=== PATIENT | female | born 1975 | race Caucasian/White ===

== ENCOUNTER → 2017-02-07 | Outpatient (CLI) | payer MEDICARE, MEDICAID ==
[~2017-02-07] MED LIST: ABILIFY 10MG TA10 MG PO; ADIPEX-P37.5 MG PO; AMBIEN 5MG TABLE5 MG PO; AMBIEN5 MG PO; AMOXICILLIN 50500 MG PO; ANTI DEPRESSANT; BELSOMRA20 MG PO; BP MED; BRINTELLIX20; BRINTELLIX20 PO; CALCIUM CITRAT200 MG PO; CEFTIN250 MG PO; CELEBREX 1100 MG/CAP PO; CEPHALEXIN500 M1; CHOLESTEROL MED; CLEOCIN HCL300 MG PO; COZAAR100 MG PO; DESYREL 50MG50 MG PO; DITROPAN XL10 MG PO; DOXYCYCLINE 10100 MG PO; FERROUS SU325 MG/TAB PO; FLUOXETINE PO; FOLIC ACID; INVANZ INJ1 G/VIAL IV; IRON FERROUS S325 MG PO; IRON325 MG; IRON65 MG PO; KLONOPIN 1MG1 MG PO; LASIX 20MG TABL20 MG PO; LEVAQUIN 5500 MG/TA1 PO; LEVAQUIN 5500 MG/TAB PO; LEVAQUIN 750MG750 M1 PO; LORTAB 5/500 501 TAB PO; LOVENOX 3030 MG/0.3 SQ; MVI; NO HOME MEDICATIONS; NORCO 325 MG-51 TAB PO; NORCO 325 MG-7.1 TAB PO; NYSTATIN POWDER30 GM TOP; OXAYDO7.5 MG PO; PERCOCET 325 MG1 TA2 PO; PERCOCET 5/321 UDTAB PO; PRINZIDE 12.5 M1 TA1 PO; PROAIR HFA0.09 MG/AC IH; PROZAC 20MG20 MG PO; SINGULAIR 110 MG/TAB PO; TYLENOL 500MG500 MG PO; VESICARE10 MG PO; VIIBRYD40 MG PO; VIT B12; VITAMIN C500 MG PO; XANAX 1MG1 MG PO; ZOCOR 10MG10 MG PO; ZOCOR 20MG20 MG PO; ZOLOFT 100MG100 MG PO
== END ==
LOC: COL.VAS 12:59
DX: R60.0 Localized edema (principal)

== ENCOUNTER 2017-06-14 22:25 | Emergency (ER) | payer MEDICARE ==
[~2017-06-14] VITALS: Ht 167.6 cm; Wt 254.5 kg
[2017-06-14 22:30] VITALS: TEMP 97.6
[2017-06-14 23:27] LABS: COLLECTION METHOD CLEAN CATCH
[2017-06-14 23:33] LABS: MUCOUS Present /lpf; PH 5 (5-8); URINE APPEARANCE Cloudy; URINE BACTERIA Rare /hpf; URINE BILIRUBIN Negative (NEGATIVE); URINE BLOOD 3+ (NEGATIVE); URINE COLOR Yellow; URINE GLUCOSE Negative (NEGATIVE); URINE KETONE Negative (NEGATIVE); URINE LEUKOCYTE ESTERASE 3+ (NEGATIVE); URINE PROTEIN(semi-quant) Negative (NEGATIVE); URINE RBC 20-50 /hpf; URINE UROBILINOGEN Negative (NEGATIVE); URINE WBC 20-50 /hpf
[2017-06-14 23:35] LABS: BASO # 0.1 (0.0-0.2); BASO % 0.8 % (0.0-2.0); EOS # 0.1 (0.0-0.7); GRAN # 6.2 (1.4-6.5); GRAN % 75.1 % (42.2-75.2); HEMATOCRIT 39.7 % (37.0-47.0); HEMOGLOBIN 12.9 g/dl (12.5-16.0); LYMPH # 1.4 (1.2-3.4); LYMPH % 16.7 % (20.0-51.0); MEAN CELL VOLUME 91 fl (80.0-100.0); MEAN CORPUSCULAR HEMOGLOBIN 30 pg (27.0-31.0); MEAN CORPUSCULAR HGB CONC 33 g/dl (33.0-37.0); MEAN PLATELET VOLUME 11.1 fl (7.4-10.4); MONO # 0.5 (0.1-0.6); MONO % 6.2 % (1.7-9.3); PLATELET COUNT 256 K/mm3 (130-400); RED BLOOD COUNT 4.35 M/mm3 (4.10-5.30); WHITE BLOOD COUNT 8.3 K/mm3 (4.8-10.8)
[2017-06-14] MEDS ORDERED: ABILIFY 15MG TA15 MG PO (23:44)
[2017-06-14] MEDS ORDERED: CEPHALEXIN250 M1 PO (23:45)
[2017-06-14] MEDS ORDERED: VESICARE 5MG5 MG PO (23:45)
[2017-06-14 23:48] LABS: ADJUSTED CALCIUM 9.2 mg/dL (8.4-10.2); ALANINE AMINOTRANSFERASE 22 U/L (9-52); ALBUMIN 4.3 gm/dL (3.5-5.0); ALKALINE PHOSPHATASE 92 U/L (50-136); ANION GAP 10 mmol/L (7-16); BILIRUBIN,TOTAL 0.5 mg/dL (0.0-1.0); BLOOD UREA NITROGEN 26 mg/dL (7-17); C-REACTIVE PROTEIN < 0.5 mg/dL (0.0-0.9); CALCIUM 9.4 mg/dL (8.4-10.2); CARBON DIOXIDE 19 mmol/L (22-30); CHLORIDE 110 mmol/L (98-107); GLUCOSE 134 mg/dL (74-106); POTASSIUM 5.3 mmol/L (3.4-5.0); SODIUM 139 mmol/L (137-145); TOTAL PROTEIN 7.6 gm/dL (6.4-8.2)
[2017-06-15] MEDS ORDERED: ZOFRAN 4MG T4 MG/TAB PO (00:09)
[2017-06-15] MEDS ORDERED: NORCO 325 MG-51 TAB PO (00:09)
[2017-06-15] MEDS ORDERED: OMNICEF 300MG300 MG PO (00:09)
[2017-06-15 00:31] VITALS: BP 167/72; PULSE 81
== END 2017-06-15 00:31 | disposition home or self-care (01) ==
LOC: COL.ER 22:25
PROVIDERS: Emergency Medicine
DX: N23 Unspecified renal colic (principal); R60.0 Localized edema; E66.01 Morbid (severe) obesity due to excess calories; Z98.84 Bariatric surgery status; Z87.442 Personal history of urinary calculi; Z68.45 Body mass index [BMI] 70 or greater, adult
CPT/HCPCS: J1170; J1885; J2550; J7030

== ENCOUNTER 2017-09-03 11:04 | Emergency (ER) | payer MEDICARE ==
[~2017-09-03] VITALS: Ht 167.6 cm; Wt 250.5 kg
[~2017-09-03 11:04] MED LIST changes: +ABILIFY 15MG TA15 MG PO; +CEPHALEXIN250 M1 PO; +OMNICEF 300MG300 MG PO; +VESICARE 5MG5 MG PO; +ZOFRAN 4MG T4 MG/TAB PO
[2017-09-03 11:08] VITALS: BP 139/60
[2017-09-03] MEDS ORDERED: DESYREL 100MG100 MG PO (11:21)
[2017-09-03] MEDS ORDERED: PREDNISONE20 MG PO (12:43)
[2017-09-03] MEDS ORDERED: DOXYCYCLINE 10100 MG PO (12:43)
[2017-09-03 12:55] VITALS: PULSE 84; TEMP 97.8
== END 2017-09-03 12:53 | disposition home or self-care (01) ==
LOC: COL.ER 11:04
DX: J45.909 Unspecified asthma, uncomplicated (principal); I10 Essential (primary) hypertension; Z90.49 Acquired absence of other specified parts of digestive tract; Z95.1 Presence of aortocoronary bypass graft; Z98.890 Other specified postprocedural states
CPT/HCPCS: J7512

== ENCOUNTER → 2017-10-24 | Outpatient (CLI) | payer MEDICARE, MEDICAID ==
[~2017-10-24] MED LIST changes: +DESYREL 100MG100 MG PO; +PREDNISONE20 MG PO
[2017-10-24 14:20] LABS: PROTHROMBIN TIME 11.6 SECONDS (9.7-12.8)
[2017-10-24 14:21] LABS: CREATININE, serum 1.56 mg/dL (0.52-1.25); POTASSIUM 4.5 mmol/L (3.4-5.0)
[2017-10-24 14:23] LABS: PARTIAL THROMBOPLASTIN TIME 30.9 SECONDS (26.0-37.0)
== END ==
LOC: COL.LAB 11:03
PROVIDERS: Family Medicine
DX: E53.8 Deficiency of other specified B group vitamins (principal); N18.9 Chronic kidney disease, unspecified; R23.8 Other skin changes

== ENCOUNTER → 2018-02-01 | Outpatient (CLI) | payer MEDICARE, MEDICAID ==
[2018-02-01 17:41] LABS: COLLECTION METHOD CLEAN CATCH
[2018-02-01 17:55] LABS: MUCOUS Present /lpf; PH 5 (5-8); URINE APPEARANCE Hazy; URINE BACTERIA Rare /hpf; URINE BILIRUBIN Negative (NEGATIVE); URINE BLOOD 2+ (NEGATIVE); URINE COLOR Yellow; URINE GLUCOSE Negative (NEGATIVE); URINE KETONE Negative (NEGATIVE); URINE LEUKOCYTE ESTERASE 2+ (NEGATIVE); URINE NITRATE Negative (NEGATIVE); URINE PROTEIN(semi-quant) Negative (NEGATIVE); URINE UROBILINOGEN Negative (NEGATIVE); URINE WBC >50 /hpf
== END ==
LOC: COL.LAB 15:14
PROVIDERS: Family Medicine
DX: N39.0 Urinary tract infection, site not specified (principal)

== ENCOUNTER → 2018-03-30 | Outpatient (CLI) | payer MEDICARE, MEDICAID | LOC: COL.LAB 10:57 | DX: E87.2 Acidosis (principal); E87.8 Other disorders of electrolyte and fluid balance, not elsewhere classified ==

== ENCOUNTER → 2018-04-04 | Outpatient (CLI) | payer MEDICARE ==
[2018-04-04 10:18] LABS: CHOLESTEROL RISK RATIO 3.4
[2018-04-04 10:47] LABS: THYROID STIMULATING HORMONE 1.89 uIU/mL (0.465-4.680)
== END ==
LOC: COL.LAB 09:34
PROVIDERS: Family Medicine
DX: E11.65 Type 2 diabetes mellitus with hyperglycemia (principal); E66.01 Morbid (severe) obesity due to excess calories

== ENCOUNTER → 2018-04-05 | Outpatient (CLI) | payer MEDICARE, MEDICAID ==
[2018-04-05 13:14] LABS: CALCIUM 8.8 mg/dL (8.4-10.2); CREATININE, serum 1.59 mg/dL (0.52-1.25); POTASSIUM 4.1 mmol/L (3.4-5.0)
== END ==
LOC: COL.LAB 12:34 → LIGHT 04-10 10:04
PROVIDERS: Family Medicine
DX: E87.8 Other disorders of electrolyte and fluid balance, not elsewhere classified (principal)

== ENCOUNTER → 2018-04-10 | Outpatient (CLI) | payer MEDICARE, MEDICAID ==
[~2018-04-10] VITALS: Ht 167.6 cm; Wt 227.5 kg
[~2018-04-10] MED LIST changes: +ABILIFY2 MG PO; -DESYREL 100MG100 MG PO; +MACRODANTIN50 MG/CA1 PO; -PRINZIDE 12.5 M1 TA1 PO; +PRINZIDE 12.5 M1 TAB PO; +SODIUM BICARBO650 MG PO; -VESICARE 5MG5 MG PO
[2018-04-10 09:13] VITALS: BP 122/80; PULSE 72
== END ==
LOC: LIGHT 07:42
DX: E66.9 Obesity, unspecified (principal); Z71.3 Dietary counseling and surveillance

== ENCOUNTER → 2018-04-11 | Outpatient (CLI) | payer MEDICARE, MEDICAID | LOC: COL.LAB 10:39 | DX: E66.01 Morbid (severe) obesity due to excess calories (principal) ==

== ENCOUNTER → 2018-04-18 | Outpatient (CLI) | payer MEDICARE ==
[2018-04-18 10:43] LABS: CALCIUM 8.8 mg/dL (8.4-10.2); CREATININE, serum 1.28 mg/dL (0.52-1.25); POTASSIUM 4.1 mmol/L (3.4-5.0)
== END ==
LOC: COL.LAB 10:04
PROVIDERS: Family Medicine
DX: E87.8 Other disorders of electrolyte and fluid balance, not elsewhere classified (principal)

== ENCOUNTER → 2018-05-10 | Outpatient (CLI) | payer MEDICARE ==
[~2018-05-10] VITALS: Ht 167.6 cm; Wt 228.8 kg
[2018-05-10 10:08] VITALS: BP 138/86; PULSE 80
== END ==
LOC: LIGHT 09:50
DX: F32.9 Major depressive disorder, single episode, unspecified (principal); E78.5 Hyperlipidemia, unspecified; E66.01 Morbid (severe) obesity due to excess calories; Z68.45 Body mass index [BMI] 70 or greater, adult; Z71.3 Dietary counseling and surveillance
CPT/HCPCS: G0463

== ENCOUNTER → 2018-05-28 | Outpatient (CLI) | payer MEDICARE ==
[2018-05-28 09:32] LABS: CALCIUM 8.7 mg/dL (8.4-10.2); CREATININE, serum 1.13 mg/dL (0.52-1.25); POTASSIUM 3.8 mmol/L (3.4-5.0)
== END ==
LOC: COL.LAB 08:55
PROVIDERS: Family Medicine
DX: E87.8 Other disorders of electrolyte and fluid balance, not elsewhere classified (principal)

== ENCOUNTER → 2018-06-07 | Outpatient (CLI) | payer MEDICARE ==
[~2018-06-07] VITALS: Ht 167.6 cm; Wt 224.5 kg
[2018-06-07 10:49] VITALS: BP 118/86; PULSE 76
== END ==
LOC: LIGHT 10:19
DX: F32.9 Major depressive disorder, single episode, unspecified (principal); E78.5 Hyperlipidemia, unspecified; E66.01 Morbid (severe) obesity due to excess calories; Z68.45 Body mass index [BMI] 70 or greater, adult; Z71.3 Dietary counseling and surveillance
CPT/HCPCS: G0463

== ENCOUNTER → 2018-07-26 | Outpatient (CLI) | payer MEDICARE ==
[~2018-07-26] VITALS: Ht 167.6 cm; Wt 220.0 kg
[2018-07-26 10:01] VITALS: BP 136/80; PULSE 88
== END ==
LOC: LIGHT 09:46
DX: F32.9 Major depressive disorder, single episode, unspecified (principal); E78.5 Hyperlipidemia, unspecified; E66.01 Morbid (severe) obesity due to excess calories; Z68.45 Body mass index [BMI] 70 or greater, adult; Z71.3 Dietary counseling and surveillance
CPT/HCPCS: G0463

== ENCOUNTER → 2018-10-25 | Outpatient (CLI) | payer MEDICARE ==
[~2018-10-25] VITALS: Ht 167.6 cm; Wt 222.3 kg
[~2018-10-25] MED LIST changes: +BRINTELLIX10 PO; -BRINTELLIX20 PO
[2018-10-25 13:59] VITALS: BP 130/80; PULSE 72
== END ==
LOC: LIGHT 08-23 11:55
DX: F32.9 Major depressive disorder, single episode, unspecified (principal); E78.5 Hyperlipidemia, unspecified; E66.01 Morbid (severe) obesity due to excess calories; Z71.3 Dietary counseling and surveillance; Z68.45 Body mass index [BMI] 70 or greater, adult
CPT/HCPCS: G0463

== ENCOUNTER → 2018-11-22 | Outpatient (CLI) | payer MEDICARE ==
[~2018-11-22] VITALS: Ht 167.6 cm; Wt 220.0 kg
[2018-11-22 11:42] VITALS: BP 108/60; PULSE 72
== END ==
LOC: LIGHT 11:19
DX: F32.9 Major depressive disorder, single episode, unspecified (principal); E78.5 Hyperlipidemia, unspecified; E66.01 Morbid (severe) obesity due to excess calories; Z68.45 Body mass index [BMI] 70 or greater, adult; Z71.3 Dietary counseling and surveillance
CPT/HCPCS: G0463

== ENCOUNTER 2019-01-03 22:36 | Emergency (ER) | payer MEDICARE ==
[~2019-01-03] VITALS: Ht 167.6 cm; Wt 221.8 kg
[2019-01-03 23:18] VITALS: BP 120/55; TEMP 97
[2019-01-04] MEDS ORDERED: BUSPAR10 MG PO (01:37)
[2019-01-04] MEDS ORDERED: DITROPAN XL10 MG PO (01:38)
[2019-01-04] MEDS ORDERED: ZITHROMAX 250M250 MG PO (02:30)
[2019-01-04] MEDS ORDERED: PROAIR HFA0.09 MG/AC IH (02:31)
[2019-01-04 02:50] VITALS: PULSE 81
== END 2019-01-04 02:50 | disposition home or self-care (01) ==
LOC: COL.ER 22:36
DX: J20.9 Acute bronchitis, unspecified (principal); J06.9 Acute upper respiratory infection, unspecified; Z98.84 Bariatric surgery status; Z88.5 Allergy status to narcotic agent; Z88.6 Allergy status to analgesic agent

== ENCOUNTER 2019-01-06 16:22 | Emergency (ER) | payer MEDICARE ==
[~2019-01-06] VITALS: Ht 167.6 cm; Wt 221.8 kg
[~2019-01-06 16:22] MED LIST changes: +BUSPAR10 MG PO; +ZITHROMAX 250M250 MG PO
[2019-01-06 16:27] VITALS: BP 188/90; TEMP 99
[2019-01-06 17:28] LABS: HEMATOCRIT 37.7 % (37.0-47.0); HEMOGLOBIN 12.3 g/dl (12.5-16.0); MEAN CELL VOLUME 87 fl (80.0-100.0); MEAN CORPUSCULAR HEMOGLOBIN 29 pg (27.0-31.0); MEAN CORPUSCULAR HGB CONC 33 g/dl (33.0-37.0); MEAN PLATELET VOLUME 11.7 fl (7.4-10.4); PLATELET COUNT 256 K/mm3 (130-400); RED BLOOD COUNT 4.32 M/mm3 (4.10-5.30); REDCELL DISTRIBUTION WIDTH-CV 14.1 % (11.5-14.5)
[2019-01-06 17:44] LABS: C-REACTIVE PROTEIN 7.3 mg/dL (0.0-0.9)
[2019-01-06] MEDS ORDERED: FLEXERIL 1010 MG/TAB PO (18:08)
[2019-01-06] MEDS ORDERED: VOLTAREN 75 DR75 MG PO ×2 (18:08)
[2019-01-06] MEDS ORDERED: PREDNISONE20 MG PO (18:08)
[2019-01-06] MEDS ORDERED: NORCO 325 MG-51 TAB PO (18:18)
[2019-01-06 18:24] LABS: EOSINOPHIL 4 % (0-4); LYMPHOCYTE 24 % (20.0-51.0); NEUTROPHILS 67 % (42.0-75.2); PLATELET ESTIMATE NORMAL (NORMAL)
[2019-01-06 18:30] VITALS: PULSE 85
== END 2019-01-06 18:30 | disposition home or self-care (01) ==
LOC: COL.ER 16:22
PROVIDERS: Emergency Medicine
DX: S46.912A Strain of unspecified muscle, fascia and tendon at shoulder and upper arm level, left arm, initial encounter (principal); Z90.49 Acquired absence of other specified parts of digestive tract
CPT/HCPCS: J1885; J7512

== ENCOUNTER 2019-12-21 12:32 | Emergency (ER) | payer MEDICARE, MEDICAID ==
[~2019-12-21] VITALS: Ht 170.2 cm; Wt 227.3 kg
[~2019-12-21 12:32] MED LIST changes: +FLEXERIL 1010 MG/TAB PO; +VOLTAREN 75 DR75 MG PO
[2019-12-21 12:53] VITALS: TEMP 98.8
[2019-12-21] MEDS ORDERED: WELLBUTRIN XL300 M1 PO (13:02)
[2019-12-21] MEDS ORDERED: CEPHALEXIN500 M1 PO (13:41)
[2019-12-21 14:25] VITALS: BP 147/82; PULSE 66
== END 2019-12-21 14:25 | disposition home or self-care (01) ==
LOC: COL.ER 12:32
DX: T63.301A Toxic effect of unspecified spider venom, accidental (unintentional), initial encounter (principal); E66.9 Obesity, unspecified; Z68.45 Body mass index [BMI] 70 or greater, adult

== ENCOUNTER 2021-03-06 13:06 | Emergency (ER) | payer MEDICARE, MEDICAID ==
[~2021-03-06] VITALS: Ht 170.2 cm; Wt 247.7 kg
[~2021-03-06 13:06] MED LIST changes: +CEPHALEXIN500 M1 PO; +WELLBUTRIN XL300 M1 PO
[2021-03-06 13:27] VITALS: TEMP 98.2
[2021-03-06 13:58] LABS: COLLECTION METHOD CLEAN CATCH
[2021-03-06 14:05] LABS: PH 5 (5-8); SQUAMOUS EPITHELIAL 20-50 /hpf; URINE APPEARANCE Cloudy; URINE BACTERIA Occasional /hpf; URINE BILIRUBIN Negative (NEGATIVE); URINE BLOOD 1+ (NEGATIVE); URINE COLOR Yellow; URINE GLUCOSE Negative (NEGATIVE); URINE KETONE Negative (NEGATIVE); URINE LEUKOCYTE ESTERASE 3+ (NEGATIVE); URINE NITRATE Negative (NEGATIVE); URINE PROTEIN(semi-quant) Negative (NEGATIVE); URINE UROBILINOGEN Negative (NEGATIVE); URINE WBC >50 /hpf
[2021-03-06 15:34] LABS: COLLECTION METHOD CATHETER
[2021-03-06 15:58] LABS: PH 5 (5-8); SQUAMOUS EPITHELIAL 0-2 /hpf; URINE APPEARANCE Clear; URINE BACTERIA None Seen /hpf; URINE BILIRUBIN Negative (NEGATIVE); URINE BLOOD 1+ (NEGATIVE); URINE COLOR Yellow; URINE GLUCOSE Negative (NEGATIVE); URINE KETONE Negative (NEGATIVE); URINE LEUKOCYTE ESTERASE 2+ (NEGATIVE); URINE NITRATE Negative (NEGATIVE); URINE PROTEIN(semi-quant) Negative (NEGATIVE); URINE RBC 0-2 /hpf; URINE UROBILINOGEN Negative (NEGATIVE)
[2021-03-06] MEDS ORDERED: FLAGYL500 MG PO (16:11)
[2021-03-06 16:45] VITALS: BP 130/76; PULSE 69
== END 2021-03-06 16:45 | disposition home or self-care (01) ==
LOC: COL.ER 13:06
PROVIDERS: Nurse Practitioner Primary Care
DX: N76.0 Acute vaginitis (principal); A59.09 Other urogenital trichomoniasis; E66.01 Morbid (severe) obesity due to excess calories
CPT/HCPCS: J0696

== ENCOUNTER 2021-11-10 15:00 | Outpatient (RCR) | payer MEDICARE, MEDICAID ==
[~2021-11-10 15:00] MED LIST changes: +FLAGYL500 MG PO
== END 2021-11-18 | disposition home or self-care (01) ==
LOC: WSPT
DX: M54.50 Low back pain, unspecified (principal)

== ENCOUNTER 2021-12-17 14:15 | Outpatient (RCR) | payer MEDICARE, MEDICAID | END 2021-12-18 | disposition home or self-care (01) | LOC: WSPT | DX: M54.50 Low back pain, unspecified (principal) ==

== ENCOUNTER 2022-01-14 12:45 | Outpatient (RCR) | payer MEDICARE, MEDICAID | END 2022-01-18 | disposition still patient (30) | LOC: WSPT | DX: M54.50 Low back pain, unspecified (principal); E66.01 Morbid (severe) obesity due to excess calories; Z68.45 Body mass index [BMI] 70 or greater, adult ==

== ENCOUNTER 2022-02-16 14:15 | Outpatient (RCR) | payer MEDICARE, MEDICAID | END 2022-02-17 | disposition home or self-care (01) | LOC: WSPT | DX: M54.50 Low back pain, unspecified (principal) ==

== ENCOUNTER 2022-03-18 14:15 | Outpatient (RCR) | payer MEDICARE, MEDICAID | END 2022-03-20 | disposition home or self-care (01) | LOC: WSPT | DX: M54.50 Low back pain, unspecified (principal); G89.29 Other chronic pain ==

== ENCOUNTER → 2022-04-20 | Outpatient (RCR) | payer MEDICARE, MEDICAID | END | disposition home or self-care (01) | LOC: WSPT | DX: M54.50 Low back pain, unspecified (principal) ==

== ENCOUNTER 2022-06-17 10:30 | Outpatient (RCR) | payer MEDICARE, MEDICAID | END 2022-06-20 | disposition home or self-care (01) | LOC: WSPT | DX: R26.81 Unsteadiness on feet (principal); R26.89 Other abnormalities of gait and mobility; M54.50 Low back pain, unspecified ==

== ENCOUNTER 2023-06-05 05:23 | Day surgery (SDC) | payer MEDICARE, MEDICAID ==
[~2023-06-05] VITALS: Ht 167.6 cm; Wt 213.6 kg
[2023-06-05] MEDS ORDERED: SINGULAIR 110 MG/TAB (06:08)
[2023-06-05] MEDS ORDERED: IRON TABLETS325 MG PO (06:09)
[2023-06-05] MEDS ORDERED: CRESTOR5 MG (06:10)
[2023-06-05] MEDS ORDERED: MELATONIN5 M1 SL (06:11)
[2023-06-05] MEDS ORDERED: DESYREL 100MG100 MG PO (06:11)
[2023-06-05] MEDS ORDERED: CELEXA40 MG PO (06:12)
[2023-06-05] MEDS ORDERED: OZEMPIC2 MG/0.75 SQ (06:14)
[2023-06-05 06:27] VITALS: BP 149/77; PULSE 66; TEMP 98.3
--- NOTE | 2023-06-05 08:07 | NUR ---
PATIENT AMBULATED TO BAY 1 WITH SLOW GAIT AT 0533. PATIENT ALERT AND ORIENTED X4. PATIENT STATED UNDERSTNADING OF PROCEDURE. CONSENT SIGNED. ASSESSMENT COMPLETED. 20G IV STARTED BY ARLEEN MCDONALD IN RIGHT AC/ LR INFUSING WITHOUT DIFFICULTIES. WARM BLANKET PROVIDED. RESTING IN COT. CALL LIGHT IN REACH.
[2023-06-05 08:28] VITALS: BP 150/69; PULSE 70; TEMP 97.5
--- NOTE | 2023-06-05 08:28 | NUR ---
0828 PATIENT RETURNS TO ROOM 1 VIA CART. PATIENT IS DROWSY, BUT ALERTS TO VERBAL STIMULI. RESPIRATIONS EVEN AND UNLABORED, ON ROOM AIR. VITAL SIGNS OBTAINED. PATIENT IS WEARING A MITUL PAD. MINIMAL BLOODY DRAINAGE NOTED. PATIENT STATES THAT SHE IS NOT HAVING ANY PAIN OR CRAMPING. PATIENT STATES THAT SHE NEEDS TO HAVE A BOWEL MOVEMENT. THIS NURSE ASSISTED PATIENT TO THE RESTROOM. 0835 PATIENT RETURNS TO ROOM 1. PATIENT STATES THAT SHE IS CONSTIPATED AND WAS UNABLE TO GO. THIS NURSE EDUCATED PATIENT ABOUT WHAT TO BE AWARE OF WHEN AT HOME. BLOOD CLOTS THE SIZE OF A QUARTER OR BIGGER, OR SATURATING HER PAD WITHIN AN HR TO GIVE DR. HAJI OFFICE A CALL. PATIENT VERBALIZED UNDERSTANDING. 0845 PATIENT STATES THAT SHE IS NOT HUNGRY OR THIRSTY AND IS READY TO GO HOME AND ASKED FOR HER IV TO BE TAKEN OUT. THIS NURSE ASKED IF PATIENT WAS HAVING ANY PAIN OR NAUSEA. PATIENT DENIES. THIS NURSE DISCONTINUED IV FROM RIGHT AC WITH NO DIFFICULTIES. IV CATHETER INTACT. PATIENT DRESSED SELF. 0915 THIS NURSE REVIEWED DISCHARGE INSTRUCTIONS WITH PATIENT. PATIENT VERBALIZED UNDERSTANDING. 0920 PATIENT DISCHARGED FROM UNIT VIA WHEELCHAIR IN STABLE CONDITION TO PRIVATE CAR.
[2023-06-05 08:43] VITALS: BP 159/77; PULSE 65
[2023-06-05] MEDS ORDERED: ROXICODONE 55 MG/TAB PO (08:48)
[2023-06-05 08:58] VITALS: BP 141/80; PULSE 61
== END 2023-06-05 09:20 | disposition home or self-care (01) ==
LOC: SDCO 05:23
DX: N84.0 Polyp of corpus uteri (principal); N92.1 Excessive and frequent menstruation with irregular cycle; E66.01 Morbid (severe) obesity due to excess calories; I10 Essential (primary) hypertension; E78.00 Pure hypercholesterolemia, unspecified; G47.33 Obstructive sleep apnea (adult) (pediatric); Z68.45 Body mass index [BMI] 70 or greater, adult; Z79.899 Other long term (current) drug therapy; Z99.81 Dependence on supplemental oxygen
CPT/HCPCS: J1200; J2704; J3010; J7120

== ENCOUNTER 2023-10-18 09:45 | Outpatient (RCR) | payer MEDICARE, MEDICAID ==
[~2023-10-18 09:45] MED LIST changes: +CELEXA40 MG PO; +CRESTOR5 MG; +DESYREL 100MG100 MG PO; +IRON TABLETS325 MG PO; +MELATONIN5 M1 SL; +OZEMPIC2 MG/0.75 SQ; +ROXICODONE 55 MG/TAB PO; +SINGULAIR 110 MG/TAB
== END 2023-10-19 | disposition home or self-care (01) ==
LOC: WSPT
DX: M54.50 Low back pain, unspecified (principal)

== ENCOUNTER 2023-10-26 08:00 | Outpatient (RCR) | payer MEDICARE, MEDICAID | END 2023-11-19 | disposition home or self-care (01) | LOC: WSPT | DX: M54.50 Low back pain, unspecified (principal) ==

== ENCOUNTER 2024-06-07 11:00 | Outpatient (RCR) | payer MEDICARE ==
--- NOTE | 2024-06-05 16:40 | NUR ---
int SITE ATTEMPTED X 1 BY THIS NURSE.aTTEMPTED BY Patience Mcwilliams X 2 WITHOUT SUCCESS.PT RESCHEDULED TO MONDAY FOR INFUSION WHEN AIV IS AVAILABLE.
[~2024-06-07] VITALS: Ht 167.6 cm; Wt 203.9 kg
[~2024-06-07 11:00] MED LIST changes: -CRESTOR5 MG; +CRESTOR5 MG PO; +FLEXERIL5 MG PO; +Iron Sucrose 200 MG in NS 100 ML Over 15 minutes IV ONE; -SINGULAIR 110 MG/TAB
[2024-06-07 11:51] VITALS: BP 139/81; PULSE 92; TEMP 97.7
== END 2024-06-07 12:17 | disposition home or self-care (01) ==
LOC: EUO 11:00
DX: E61.1 Iron deficiency (principal)
CPT/HCPCS: J1756